=== PATIENT | male | born 1975 | race Caucasian/White ===

== ENCOUNTER 2016-05-26 19:28 | Emergency (ER) | payer SELFPAY ==
[2016-05-26 19:32] VITALS: BP 129/72; PULSE 99; TEMP 98
[2016-05-26 20:13] VITALS: BMI 25.0
--- NOTE | 2016-05-26 20:48 | EDPRACDOC ---
- General Information Chief Complaint: Skin Rash (not drug induced) Stated Complaint: RASH Time Seen by Provider: 05/26/16 20:40 Information Source: Patient Mode Of Arrival: Car Home Medications: Home Medications Gabapentin [Neurontin] 1,200 mg PO TID 05/26/16 HydrOXYzine HCl (Antihistamine [Atarax] 25 mg PO Q6 PRN #30 tab 05/26/16 Permethrin 120 ml TP DAILY #1 bot 05/26/16 Allergies/Adverse Reactions: Allergies Allergy/AdvReac Type Severity Reaction Status Date / Time No Known Allergies Allergy Verified 05/26/16 20:11 - History of Present Illness Onset: 6 days HPI: ITCHING RASH TO BODY X 6 DAYS, CURRENTLY L[facility]ING [facility], STARTED ON HANDS AND FEET, NOW HAS SPREAD TO THE BODY, NO FEVER OR CHILLS, NO KNOWN CONTACT EXPOSURE. Rash Location: Reports: Generalized Quality: Reports: Pruritic, Red Known Exposure To: Denies: Chemical, Cosmetic, Lice, Measles, Medication, Poison Autumn, Scabies, Varicella, Rubella, STD, Other Relevant History of: Reports: None Pain Severity: None Associated Signs and Symptoms: Reports: None ED Past Medical History - History Reviewed Yes Nurses notes reviewed and agree except as marked No Past Medical History: Yes Patient has no past medical history - Patient Medical History Psychological History: Denies: Depression - Social Medical History Smoking Status: Heavy tobacco smoker (5 or more cigarettes/day or daily pipe/ cigar) EDM Review of Systems - Review of Systems Constitutional: negative: Chills, Fever Gastrointestinal: negative: Nausea, Vomiting Musculoskeletal: No Symptoms Reported Integumentary: Itching, Wound - Physical Exam Constitutional: Alert (Awake), No apparent distress Oriented to: Time, Person, Place Last recorded Vital Signs: Last Vital Signs Temp 98.0 F 05/26/16 19:32 Pulse 99 05/26/16 19:32 Resp 18 05/26/16 19:32 BP 129/72 05/26/16 19:32 Pulse Ox 96 05/26/16 19:32 Oxygen Pulse Oxygen Saturation 96 O2 Device Oxygen Flow Rate Fraction of Inspired Oxygen ( FIO2) - HEENT Head: Normal ( normocephalic) - Integumentary Skin: Warm, Dry, Rash (MULTIPLE ERYTHEMATOUS MACULOPAPULAR LESIONS NOTED TO HANDS, ARMS, FEET, LEGS, ANTERIOR/POSTERIOR TRUNK, NECK C/W SCABIES) - Neurologic Memory Impaired: Normal Motor Function: Normal (Normal tone, Pulses 2+ No cyanosis or edema, FROM) Cranial Nerve: Normal (CN II-X11 intact sensation, strength 5/5) Cerebellar: Normal Mood Description: Normal Perception: Normal - Differential Diagnosis Cellulitis, Scabies, Varicella, Viral exanthem Decision Time to Discharge: 20:48 - Departure Disposition: Home Condition: Stable Final Diagnosis: Scabies Instructions: Scabies (ED) Education/Counseling Given To: Patient Education/Counseling Given Regarding: Diagnosis, Treatment, Prognosis, Follow Up Referrals: None,No Provider [Primary Care Provider] - One Week Prescriptions: New HydrOXYzine HCl (Antihistamine [Atarax] 25 mg PO Q6 PRN #30 tab PRN Reason: Itching Permethrin 120 ml TP DAILY #1 bot Continue Gabapentin [Neurontin] 1,200 mg PO TID Additional Instructions: WASH ALL CLOTHES AND LINENS IN HOT WATER AND BLEACH, RETURN TO THE ED FOR ANY WORSENING SYMPTOMS OR CONCERNS.
== END 2016-05-26 21:02 | disposition home or self-care (01) ==
LOC: ED 19:28 → EDMC 21:02
DX: B86 Scabies (principal)
CPT/HCPCS: 99282; J3490